=== PATIENT | male | born 2000 | race Two or more races ===

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

== ENCOUNTER 2019-01-09 12:06 | Emergency (ER) | payer OTHER ==
[~2019-01-09] VITALS: Ht 170.2 cm; Wt 56.7 kg
--- NOTE | 2019-01-09 12:20 | NUR ---
CALLED TO TRIAGE,NO ANSWER
--- NOTE | 2019-01-09 12:30 | NUR ---
LT TESTICULAR PAIN/SWELLING, PAIN RAD TO LT LEG SINCE THIS AM. PATIENT A/OX4, BREATHING EVEN AND UNLABORED, DAD AT BEDSIDE.
[2019-01-09] MEDS ORDERED: AZITHROMYCIN 250 MG TABLET ONE (12:48)
[2019-01-09] MEDS ORDERED: LIDOCAINE /MPF 1% VIAL 5 ML VIAL ONE (12:48)
[2019-01-09] MEDS ORDERED: CEFTRIAXONE 500 MG VIAL ONE (12:48)
[2019-01-09] MEDS ORDERED: IBUPROFEN 600 MG TABLET PO ONE ×2 (12:48→13:00)
--- NOTE | 2019-01-09 12:50 | NUR ---
UA OBTAINED VIA STRAIGHT CATH, PER PATIENT HE'S UNABLE TO PEE ON HIS OWN. UA SENT TO LAB.
[2019-01-09 13:00] LABS: APPEARANCE,URINE Slightly Cloudy (CLEAR); BILIRUBIN,URINE SMALL (NEGATIVE); BLOOD, URINE Negative Ery/uL (NEGATIVE); COLOR,URINE Dark (YELLOW); KETONES,URINE Trace (NEGATIVE); LEUKOCYTE ESTERASE ,URINE Small (NEGATIVE); NITRITE, URINE Positive (NEGATIVE); PROTEIN,URINE 30 mg/dl (NEGATIVE); UGLUCOSE Negative (NEGATIVE); UROBILINOGEN,URINE >=8.0 EU/dL (0.2)
[2019-01-09] MEDS ORDERED: CEFTRIAXONE 500 MG VIAL IM ONE (13:00)
[2019-01-09] MEDS ORDERED: AZITHROMYCIN 250 MG TABLET PO ONE (13:00)
[2019-01-09 13:19] LABS: BACTERIA,URINE Many /HPF (None Seen); RBC,URINE 0-2 /HPF (0-2); SQUAMOUS EPITHELIAL CELL,UR Moderate /HPF (None Seen); WBC,URINE 21-50 /HPF (0-3)
[2019-01-09 14:14] VITALS: BP 126/53
--- NOTE | 2019-01-09 14:14 | NUR ---
Patient discharged to home in stable condition. Written and verbal after care instructions given. Patient verbalizes understanding of instruction.
== END 2019-01-09 14:15 | disposition home or self-care (01) ==
LOC: ER 12:14
DX: N39.0 Urinary tract infection, site not specified (principal); N50.812 Left testicular pain; Z98.890 Other specified postprocedural states
CPT/HCPCS: 76870; 81001; 82962; 87086; 87491; 87591; 96372; 99284; J0696; J3490; 81000-TC; 87186-TC

== ENCOUNTER 2019-09-05 17:04 | Emergency (ER) | payer OTHER ==
[~2019-09-05] VITALS: Ht 172.7 cm; Wt 61.7 kg
[2019-09-05 17:20] VITALS: BP 114/71
--- NOTE | 2019-09-05 18:01 | NUR ---
Patient discharged to home in stable condition. Written and verbal after care instructions given. Patient verbalizes understanding of instruction.
== END 2019-09-05 18:02 | disposition home or self-care (01) ==
LOC: ER 17:04
DX: B35.1 Tinea unguium (principal); R23.4 Changes in skin texture; Z98.890 Other specified postprocedural states

== ENCOUNTER 2020-12-03 23:17 | Emergency (ER) | payer OTHER ==
[~2020-12-03] VITALS: Ht 170.2 cm; Wt 61.2 kg
[2020-12-03 23:28] VITALS: BP 110/70
[2020-12-04] MEDS ORDERED: ONDANSETRON 4 MG TAB.RAPDIS SL ONE
[2020-12-04] MEDS ORDERED: HYDROCODONE/APAP 10/325MG TABLET PO ONE
[2020-12-04] MEDS ORDERED: CYCLOBENZAPRINE 10 MG TABLET PO ONE
[2020-12-04] MEDS ORDERED: ONDANSETRON 4 MG TAB.RAPDIS ONE (00:10)
[2020-12-04] MEDS ORDERED: CYCLOBENZAPRINE 10 MG TABLET ONE (00:10)
[2020-12-04] MEDS ORDERED: HYDROCODONE/APAP 10/325MG TABLET ONE (00:10)
[2020-12-04] MEDS ORDERED: CYCL10TA9 PO (01:19)
[2020-12-04] MEDS ORDERED: HYDR-3980 PO (01:19)
--- NOTE | 2020-12-04 01:30 | NUR ---
Patient discharged to home in stable condition. Written and verbal after care instructions given. Patient verbalizes understanding of instruction.
== END 2020-12-04 01:45 | disposition home or self-care (01) ==
LOC: ER 23:17
DX: M54.5 Low back pain (principal); Z98.890 Other specified postprocedural states; Z79.899 Other long term (current) drug therapy
CPT/HCPCS: 72100; 99284; Q0162

== ENCOUNTER 2021-08-09 11:29 | Emergency (ER) | payer OTHER ==
[~2021-08-09] VITALS: Ht 172.7 cm; Wt 65.8 kg
[~2021-08-09 11:29] MED LIST: CYCL10TA9 PO; HYDR-3980 PO
[2021-08-09 11:39] VITALS: BP 113/57
--- NOTE | 2021-08-09 11:39 | NUR ---
BIB SELF C/O PENILE DISCHARGES STARTED YESTERDAY. PT A/OX4. TOLERATING R/A WELL
[2021-08-09] MEDS ORDERED: DOXY100C2 PO (11:59)
[2021-08-09] MEDS ORDERED: DOXYCYCLINE HYCLATE (100 MG) 100 MG TABLET PO ONE (12:00)
[2021-08-09] MEDS ORDERED: CEFTRIAXONE 500 MG VIAL IM ONE (12:00)
[2021-08-09] MEDS ORDERED: CEFTRIAXONE 500 MG VIAL ONE (12:02)
[2021-08-09] MEDS ORDERED: LIDOCAINE /MPF 1% VIAL 5 ML VIAL ONE (12:02)
[2021-08-09] MEDS ORDERED: DOXYCYCLINE HYCLATE (100 MG) 100 MG TABLET ONE (12:02)
--- NOTE | 2021-08-09 12:22 | NUR ---
URINE COLLECTED AND SENT TO LAB
--- NOTE | 2021-08-09 12:24 | NUR ---
Patient discharged to home in stable condition. Written and verbal after care instructions given. Patient verbalizes understanding of instruction.
--- NOTE | 2021-08-09 12:24 | NUR ---
Patient discharged to home in stable condition. Written and verbal after care instructions given. Patient verbalizes understanding of instruction. PT ambulatory with a steady gait
[2021-08-09 13:06] LABS: BILIRUBIN,URINE NEGATIVE (NEGATIVE); COLOR,URINE YELLOW (YELLOW); LEUKOCYTE ESTERASE ,URINE TRACE (NEGATIVE); NITRITE, URINE NEGATIVE (NEGATIVE); PROTEIN,URINE NEGATIVE (NEGATIVE); UGLUCOSE NEGATIVE (NEGATIVE); UROBILINOGEN,URINE 0.2 EU/dL (0.2)
[2021-08-09 13:07] LABS: RBC,URINE NONE SEEN /HPF (0-2)
[2021-08-09 13:08] LABS: BACTERIA,URINE Few /HPF (None Seen); SQUAMOUS EPITHELIAL CELL,UR Few /HPF (None Seen)
== END 2021-08-09 12:24 | disposition home or self-care (01) ==
LOC: ER 11:31
DX: N34.2 Other urethritis (principal); Z79.2 Long term (current) use of antibiotics; Z79.891 Long term (current) use of opiate analgesic
CPT/HCPCS: 81001; 87491; 87591; 96372; 99283; J0696; J3490

== ENCOUNTER 2021-09-19 10:40 | Emergency (ER) | payer OTHER ==
[~2021-09-19] VITALS: Ht 170.2 cm; Wt 63.5 kg
[~2021-09-19 10:40] MED LIST changes: +DOXY100C2 PO
--- NOTE | 2021-09-19 10:45 | NUR ---
SENT TO ER BED 11. BIBSELF FRM HOME C/O DYSURIA x 2 DAY. VITALS WITHIN NORMAL LIMITS.BREATHING REGULAR AN DUNLABORED.
--- NOTE | 2021-09-19 10:59 | NUR ---
URINE COLLECTED AND SENT
[2021-09-19 11:48] LABS: BILIRUBIN,URINE NEGATIVE (NEGATIVE); COLOR,URINE YELLOW (YELLOW); LEUKOCYTE ESTERASE ,URINE MODERATE (NEGATIVE); NITRITE, URINE POSITIVE (NEGATIVE); PROTEIN,URINE NEGATIVE (NEGATIVE); UGLUCOSE NEGATIVE (NEGATIVE); UROBILINOGEN,URINE 0.2 EU/dL (0.2)
[2021-09-19 12:07] LABS: BACTERIA,URINE Moderate /HPF (None Seen); SQUAMOUS EPITHELIAL CELL,UR Few /HPF (None Seen); WBC,URINE TOO NUMEROUS TO COUN /HPF (0-3)
[2021-09-19] MEDS ORDERED: CEPH500C2 PO (13:28)
[2021-09-19 13:34] VITALS: BP 117/52
--- NOTE | 2021-09-19 13:34 | NUR ---
Patient discharged to home in stable condition. Written and verbal after care instructions given. Patient verbalizes understanding of instruction.
== END 2021-09-19 13:34 | disposition home or self-care (01) ==
LOC: ER 10:42
DX: N39.0 Urinary tract infection, site not specified (principal); R30.0 Dysuria; Z98.890 Other specified postprocedural states
CPT/HCPCS: 81001; 87086-TC; 87186-TC; 87491; 87591

== ENCOUNTER 2021-10-01 06:09 | Emergency (ER) | payer OTHER ==
[~2021-10-01] VITALS: Ht 170.2 cm; Wt 65.8 kg
[~2021-10-01 06:09] MED LIST changes: +CEPH500C2 PO
[2021-10-01 06:18] VITALS: BP 137/79
--- NOTE | 2021-10-01 06:18 | NUR ---
BIBS IN NEED OF HERNANDEZ SUPPLIES.
--- NOTE | 2021-10-01 06:47 | NUR ---
Patient discharged to home in stable condition. Written and verbal after care instructions given. Patient verbalizes understanding of instruction. PT ambulatory with a steady gait
--- NOTE | 2021-10-01 06:48 | NUR ---
Patient discharged to home in stable condition. Written and verbal after care instructions given. Patient verbalizes understanding of instruction.
== END 2021-10-01 06:48 | disposition home or self-care (01) ==
LOC: ER 06:33
DX: R33.8 Other retention of urine (principal); Z87.448 Personal history of other diseases of urinary system; Z98.890 Other specified postprocedural states; Z79.891 Long term (current) use of opiate analgesic; Z79.899 Other long term (current) drug therapy

== ENCOUNTER 2021-10-03 23:26 | Emergency (ER) | payer OTHER ==
[~2021-10-03] VITALS: Ht 172.7 cm; Wt 61.2 kg
[2021-10-04 00:09] VITALS: BP 123/65
[2021-10-04] MEDS ORDERED: [UNRECOGNIZED DRUG - SUPPLY] MC (00:17)
--- NOTE | 2021-10-04 00:22 | NUR ---
Patient discharged to home in stable condition. Written and verbal after care instructions given. Patient verbalizes understanding of instruction. Pt ambulatory with a steady gait
== END 2021-10-04 00:23 | disposition home or self-care (01) ==
LOC: ER 23:34
DX: R33.9 Retention of urine, unspecified (principal); Z87.828 Personal history of other (healed) physical injury and trauma; Z79.891 Long term (current) use of opiate analgesic; Z79.899 Other long term (current) drug therapy

== ENCOUNTER 2022-03-20 20:06 | Emergency (ER) | payer OTHER ==
[~2022-03-20] VITALS: Ht 170.2 cm; Wt 63.5 kg
[~2022-03-20 20:06] MED LIST changes: +[UNRECOGNIZED DRUG - SUPPLY] MC
--- NOTE | 2022-03-20 21:29 | NUR ---
PT FROM HOME A/O X 4 C/O BLOOD IN THE URINE TODAY, DENIES ANY OTHER SYMPTOMS AT THIS TIME.
--- NOTE | 2022-03-20 21:34 | NUR ---
URINE COLLECTED AND SENT TO LAB
[2022-03-20 22:17] LABS: BILIRUBIN,URINE NEGATIVE (NEGATIVE); COLOR,URINE YELLOW (YELLOW); LEUKOCYTE ESTERASE ,URINE SMALL (NEGATIVE); NITRITE, URINE POSITIVE (NEGATIVE); PROTEIN,URINE NEGATIVE (NEGATIVE); UGLUCOSE NEGATIVE (NEGATIVE)
[2022-03-20 22:21] LABS: BASOPHILS # (AUTO) 0.1 K/uL (0.0-0.2); BASOPHILS % (AUTO) 0.5 % (0.0-2.0); HEMATOCRIT 39 % (39-51); HEMOGLOBIN 13.1 g/dL (13.5-17.5); LYMPHOCYTES # (AUTO) 3.3 K/uL (0.8-4.8); LYMPHOCYTES % (AUTO) 33.3 % (20.0-44.0); MEAN CORPUSCULAR HGB CONC 34 g/dl (31.0-36.0); MEAN CORPUSCULAR VOLUME 85 fL (80-96); MONOCYTES # (AUTO) 0.9 K/uL (0.1-1.30); NEUTROPHILS # (AUTO) 5.4 K/uL (1.8-8.9); NEUTROPHILS % (AUTO) 55.2 % (43.0-81.0); PLATELET COUNT (AUTO) 213 K/uL (150-450); RED BLOOD CELL COUNT(AUTO) 4.58 MIL/uL (4.5-6.0); WHITE BLOOD COUNT (AUTO) 9.8 K/uL (4.3-11.0)
[2022-03-20 22:23] LABS: BACTERIA,URINE Many /HPF (None Seen); SQUAMOUS EPITHELIAL CELL,UR Few /HPF (None Seen)
[2022-03-20 22:24] LABS: CALCIUM, SERUM 8.7 mg/dL (8.5-10.1); CREATININE 0.8 mg/dL (0.6-1.3)
[2022-03-20 22:25] LABS: POTASSIUM 2.8 mmol/L (3.5-5.1)
--- NOTE | 2022-03-20 22:25 | NUR ---
POTASSIUM 2.8
[2022-03-20] MEDS ORDERED: POTASSIUM CHLORIDE 20 MEQ TAB.PRT.SR PO ONE ×2 (22:41→23:00)
[2022-03-20] MEDS ORDERED: CEPH500C2 PO (22:58)
[2022-03-20] MEDS ORDERED: CEPHALEXIN MONOHYDRATE 500 MG CAPSULE PO ONE ×2 (23:00)
--- NOTE | 2022-03-20 23:02 | NUR ---
Patient discharged to home in stable condition. Written and verbal after care instructions given. Patient verbalizes understanding of instruction.
[2022-03-20 23:03] VITALS: BP 116/66
== END 2022-03-20 23:03 | disposition home or self-care (01) ==
LOC: ER 20:08
DX: R31.0 Gross hematuria (principal); E87.6 Hypokalemia; Z98.890 Other specified postprocedural states; Z79.899 Other long term (current) drug therapy
CPT/HCPCS: 36415; 80048-TC; 81001; 85025-TC; 85730-TC; 87086-TC; 87186-TC; 87491; 87591

== ENCOUNTER 2023-02-28 21:25 | Emergency (ER) | payer OTHER ==
[~2023-02-28] VITALS: Ht 170.2 cm; Wt 63.5 kg
[2023-02-28 22:09] VITALS: BP 107/76; TEMP 98.1
[2023-02-28] MEDS ORDERED: NABU-141 PO (22:11)
[2023-02-28] MEDS ORDERED: KETOROLAC TROMETHAMINE INJ 60 MG/2 ML VIAL IM ONE ×2 (22:13→22:30)
[2023-02-28 23:42] VITALS: O2SAT 98
== END 2023-02-28 23:42 | disposition home or self-care (01) ==
LOC: ER 21:30
DX: M54.50 Low back pain, unspecified (principal)
CPT/HCPCS: 99283; 96372; 72110; J1885

== ENCOUNTER → 2023-04-13 | Emergency (ER) | payer OTHER ==
[~2023-04-13] VITALS: Ht 170.2 cm; Wt 63.5 kg
[~2023-04-13] MED LIST changes: +DOXY100C PO; +NABU-141 PO
[2023-04-13 17:03] VITALS: BP 136/68; TEMP 98
[2023-04-13 18:08] VITALS: O2SAT 99
== END | disposition home or self-care (01) ==
LOC: ER 17:00
DX: R21 Rash and other nonspecific skin eruption (principal)

== ENCOUNTER 2023-04-15 08:59 | Emergency (ER) | payer OTHER ==
[~2023-04-15] VITALS: Ht 170.2 cm; Wt 67.1 kg
[~2023-04-15 08:59] MED LIST changes: -DOXY100C PO
[2023-04-15] MEDS ORDERED: CEFTRIAXONE 500 MG VIAL ONE (10:26)
[2023-04-15] MEDS ORDERED: DOXYCYCLINE HYCLATE (100 MG) 100 MG TABLET ONE (10:27)
[2023-04-15] MEDS ORDERED: DOXYCYCLINE HYCLATE (100 MG) 100 MG TABLET PO ONE (10:30)
[2023-04-15] MEDS ORDERED: CEFTRIAXONE 500 MG VIAL IM ONE (10:30)
[2023-04-15 10:51] LABS: APPEARANCE,URINE SLIGHTLY CLOUDY (CLEAR); BILIRUBIN,URINE NEGATIVE (NEGATIVE); BLOOD, URINE NEGATIVE Ery/uL (NEGATIVE); COLOR,URINE YELLOW (YELLOW); KETONES,URINE NEGATIVE (NEGATIVE); LEUKOCYTE ESTERASE ,URINE 1+ (NEGATIVE); NITRITE, URINE POSITIVE (NEGATIVE); PROTEIN,URINE NEGATIVE (NEGATIVE); UGLUCOSE NEGATIVE (NEGATIVE)
[2023-04-15] MEDS ORDERED: DOXY100C PO (11:20)
[2023-04-15 11:28] LABS: ADD URINE CULTURE YES; BACTERIA,URINE Many /HPF (None Seen); RBC,URINE 0-2 /HPF (0-2); SQUAMOUS EPITHELIAL CELL,UR Few /HPF (None Seen); WBC,URINE 21-50 /HPF (0-3)
[2023-04-15 11:38] VITALS: BP 114/71; TEMP 98.7; O2SAT 99
[2023-04-17 07:06] LABS: CHLAMYDIA TRACHOMATIS NAA Negative (Negative); NEISSERIA GONORRHOEAE NAA Negative (Negative)
== END 2023-04-15 11:39 | disposition home or self-care (01) ==
LOC: ER 09:02
DX: N34.2 Other urethritis (principal); A64 Unspecified sexually transmitted disease
CPT/HCPCS: 99283; 96372; 87086; 81001; 87491; 87591; J0696

== ENCOUNTER 2023-07-28 07:49 | Emergency (ER) | payer OTHER ==
[~2023-07-28] VITALS: Ht 172.7 cm; Wt 65.8 kg
[2023-07-28 07:49] VITALS: BP 117/69; TEMP 98.1
[~2023-07-28 07:49] MED LIST changes: +DOXY100C PO
[2023-07-28 09:47] LABS: APPEARANCE,URINE SLIGHTLY CLOUDY (CLEAR); BILIRUBIN,URINE NEGATIVE (NEGATIVE); BLOOD, URINE NEGATIVE Ery/uL (NEGATIVE); COLOR,URINE YELLOW (YELLOW); KETONES,URINE NEGATIVE (NEGATIVE); LEUKOCYTE ESTERASE ,URINE 3+ (NEGATIVE); NITRITE, URINE POSITIVE (NEGATIVE); PH,URINE 6.5 (5.0-8.0); PROTEIN,URINE NEGATIVE (NEGATIVE); UGLUCOSE NEGATIVE (NEGATIVE); UROBILINOGEN,URINE 0.2 EU/dL (0.2)
[2023-07-28 09:52] LABS: ADD URINE CULTURE YES; BACTERIA,URINE Moderate /HPF (None Seen); RBC,URINE 0-2 /HPF (0-2); SQUAMOUS EPITHELIAL CELL,UR Rare /HPF (None Seen); WBC,URINE 21-50 /HPF (0-3)
[2023-07-28 10:16] LABS: AMPHETAMINE, URINE NEGATIVE (NEGATIVE); BARBITURATE, URINE NEGATIVE (NEGATIVE); BENZODIAZEPINE, URINE NEGATIVE (NEGATIVE); COCCAINE, URINE NEGATIVE (NEGATIVE); OPIATE, URINE NEGATIVE (NEGATIVE); PHENCYCLIDINE SCREEN,URINE NEGATIVE (NEGATIVE)
[2023-07-28 10:17] LABS: CANNABINOID, URINE POSITIVE (NEGATIVE)
[2023-07-28] MEDS ORDERED: AZITHROMYCIN 250 MG TABLET PO ONE (12:00)
[2023-07-28] MEDS ORDERED: CEFTRIAXONE 1 G VIAL IM ONE (12:00)
[2023-07-28] MEDS ORDERED: CEFTRIAXONE 1 G VIAL ONE (12:02)
[2023-07-28] MEDS ORDERED: AZITHROMYCIN 250 MG TABLET ONE (12:02)
[2023-07-28] MEDS ORDERED: LIDOCAINE 2% 20 ML MDV ONE (12:03)
[2023-07-28 12:32] LABS: BASOPHILS % (AUTO) 0.6 % (0.0-2.0); EOSINOPHILS % (AUTO) 0.5 % (0.0-6.0); HEMATOCRIT 42 % (39-51); HEMOGLOBIN 14.1 g/dL (13.5-17.5); LYMPHOCYTES # (AUTO) 1.8 K/uL (0.8-4.8); LYMPHOCYTES % (AUTO) 26.4 % (20.0-44.0); MEAN CORPUSCULAR HEMOGLOBIN 29 PG (26.0-33.0); MEAN CORPUSCULAR HGB CONC 34 g/dl (31.0-36.0); MEAN CORPUSCULAR VOLUME 85 fL (80-96); MONOCYTES # (AUTO) 0.4 K/uL (0.1-1.30); NEUTROPHILS # (AUTO) 4.5 K/uL (1.8-8.9); NEUTROPHILS % (AUTO) 66.5 % (43.0-81.0); PLATELET COUNT (AUTO) 224 K/uL (150-450); RED BLOOD CELL COUNT(AUTO) 4.88 MIL/uL (4.5-6.0); RED CELL DISTRIBUTION WIDTH 14.2 % (11.5-15.0); WHITE BLOOD COUNT (AUTO) 6.8 K/uL (4.3-11.0)
[2023-07-28 12:44] LABS: CALCIUM, SERUM 9.6 mg/dL (8.5-10.1); CREATININE 0.8 mg/dL (0.6-1.3); POTASSIUM 3.6 mmol/L (3.5-5.1)
[2023-07-28 13:05] LABS: ALBUMIN 4.2 g/dL (3.4-5.0); BILIRUBIN,TOTAL 0.7 mg/dL (0.2-1.0); TOTAL PROTEIN, SERUM 8.4 g/dL (6.4-8.2)
[2023-07-28 14:33] VITALS: O2SAT 98
[2023-07-29 07:08] LABS: RAPID PLASMA REAGIN QUAL. Non Reactive (Non Reactive)
[2023-07-29 11:23] LABS: HIV-1 p24 ANTIGEN NON REACTIVE (NONREACTIVE); HIV-1/2 ANTIBODY NON REACTIVE (NONREACTIVE)
[2023-07-29 22:08] LABS: CHLAMYDIA TRACHOMATIS NAA Negative (Negative); NEISSERIA GONORRHOEAE NAA Negative (Negative)
== END 2023-07-28 14:33 | disposition home or self-care (01) ==
LOC: ER 07:52
DX: N39.0 Urinary tract infection, site not specified (principal)
CPT/HCPCS: 99283; 86592; 86593; 96372; 85025; 87086; 36415; 80053; 87806; 80307; 87491; 87591; 81001; J0696; J3490

== ENCOUNTER 2023-07-29 23:10 | Emergency (ER) | payer OTHER ==
[~2023-07-29] VITALS: Ht 172.7 cm; Wt 65.8 kg
[2023-07-30 02:09] LABS: APPEARANCE,URINE SLIGHTLY CLOUDY (CLEAR); BILIRUBIN,URINE NEGATIVE (NEGATIVE); BLOOD, URINE NEGATIVE Ery/uL (NEGATIVE); COLOR,URINE YELLOW (YELLOW); KETONES,URINE NEGATIVE (NEGATIVE); LEUKOCYTE ESTERASE ,URINE TRACE (NEGATIVE); NITRITE, URINE NEGATIVE (NEGATIVE); PROTEIN,URINE NEGATIVE (NEGATIVE); UGLUCOSE NEGATIVE (NEGATIVE); UROBILINOGEN,URINE 0.2 EU/dL (0.2)
[2023-07-30 02:10] LABS: ADD URINE CULTURE NO; BACTERIA,URINE Rare /HPF (None Seen); RBC,URINE 0-2 /HPF (0-2); SQUAMOUS EPITHELIAL CELL,UR Few /HPF (None Seen)
[2023-07-30 02:20] LABS: AMPHETAMINE, URINE NEGATIVE (NEGATIVE); BARBITURATE, URINE NEGATIVE (NEGATIVE); BENZODIAZEPINE, URINE NEGATIVE (NEGATIVE); CANNABINOID, URINE NEGATIVE (NEGATIVE); COCCAINE, URINE NEGATIVE (NEGATIVE); OPIATE, URINE NEGATIVE (NEGATIVE); PHENCYCLIDINE SCREEN,URINE NEGATIVE (NEGATIVE)
[2023-07-30] MEDS ORDERED: ACYC200C31 PO (05:52)
[2023-07-30 06:12] VITALS: BP 114/67; TEMP 98.1; O2SAT 99
== END 2023-07-30 06:12 | disposition home or self-care (01) ==
LOC: ER 23:13
DX: A64 Unspecified sexually transmitted disease (principal)
CPT/HCPCS: 81001

== ENCOUNTER 2023-10-03 20:12 | Emergency (ER) | payer OTHER ==
[~2023-10-03] VITALS: Ht 170.2 cm; Wt 65.8 kg
[~2023-10-03 20:12] MED LIST changes: +ACYC200C31 PO; +CYCL5TAB PO; +GABA-536 PO; +KETO10TA2 PO; +TRAM-351 PO
[2023-10-03 20:23] VITALS: BP 114/73; TEMP 98.1
[2023-10-03 20:43] VITALS: O2SAT 97
== END 2023-10-03 20:43 | disposition home or self-care (01) ==
LOC: ER 20:15
DX: Z71.1 Person with feared health complaint in whom no diagnosis is made (principal); Z79.899 Other long term (current) drug therapy; Z98.890 Other specified postprocedural states

== ENCOUNTER 2023-10-10 12:51 | Emergency (ER) | payer OTHER ==
[~2023-10-10] VITALS: Ht 170.2 cm; Wt 65.8 kg
[2023-10-10 12:52] VITALS: BP 110/66; TEMP 98.4; O2SAT 98
[2023-10-10] MEDS ORDERED: PENICILLIN G BENZATHINE 2.4 MMU/4 ML ML IM ONE (13:14)
[2023-10-10] MEDS: PENICILLIN G BENZATHINE 2.4 MMU/4 ML ML IM ONE (13:39)
[2023-10-11 08:07] LABS: RAPID PLASMA REAGIN QUAL. Non Reactive (Non Reactive)
== END 2023-10-10 13:46 | disposition home or self-care (01) ==
LOC: ER 12:51
DX: A64 Unspecified sexually transmitted disease (principal)
CPT/HCPCS: 99283; 86592; 86593; 96372; 36415; J0558

== ENCOUNTER 2023-12-05 00:56 | Emergency (ER) | payer OTHER ==
[~2023-12-05] VITALS: Ht 172.7 cm; Wt 61.2 kg
[2023-12-05 01:35] VITALS: TEMP 98.6
[2023-12-05 02:10] LABS: APPEARANCE,URINE CLEAR (CLEAR); BILIRUBIN,URINE NEGATIVE (NEGATIVE); BLOOD, URINE NEGATIVE Ery/uL (NEGATIVE); COLOR,URINE YELLOW (YELLOW); KETONES,URINE NEGATIVE (NEGATIVE); LEUKOCYTE ESTERASE ,URINE 1+ (NEGATIVE); NITRITE, URINE NEGATIVE (NEGATIVE); PROTEIN,URINE NEGATIVE (NEGATIVE); UGLUCOSE NEGATIVE (NEGATIVE); UROBILINOGEN,URINE 0.2 EU/dL (0.2)
[2023-12-05 02:11] LABS: ADD URINE CULTURE YES; BACTERIA,URINE Rare /HPF (None Seen); RBC,URINE 0-2 /HPF (0-2); SQUAMOUS EPITHELIAL CELL,UR Few /HPF (None Seen)
[2023-12-05] MEDS ORDERED: CEPH500C2 PO (02:25)
[2023-12-05 02:37] VITALS: BP 128/86; O2SAT 99
[2023-12-06 22:10] LABS: CHLAMYDIA TRACHOMATIS NAA Negative (Negative); NEISSERIA GONORRHOEAE NAA Negative (Negative)
== END 2023-12-05 02:37 | disposition home or self-care (01) ==
LOC: ER 01:05
DX: N48.1 Balanitis (principal); Z79.899 Other long term (current) drug therapy
CPT/HCPCS: 81001; 87491; 87591

== ENCOUNTER 2024-07-07 16:25 | Emergency (ER) | payer OTHER ==
[~2024-07-07] VITALS: Ht 170.2 cm; Wt 65.8 kg
[2024-07-07 17:38] VITALS: BP 116/65; TEMP 98.1; O2SAT 99
[2024-07-07] MEDS ORDERED: CLOT15CR27 TP (17:47)
== END 2024-07-07 18:20 | disposition home or self-care (01) ==
LOC: ER 16:25
DX: N47.6 Balanoposthitis (principal); R21 Rash and other nonspecific skin eruption; Z79.899 Other long term (current) drug therapy

== ENCOUNTER 2024-07-17 09:49 | Emergency (ER) | payer OTHER ==
[~2024-07-17] VITALS: Ht 170.2 cm; Wt 68.0 kg
[~2024-07-17 09:49] MED LIST changes: +CLOT15CR27 TP
[2024-07-17 10:34] VITALS: BP 122/53; TEMP 98.2; O2SAT 100
[2024-07-17] MEDS ORDERED: ACYC-108 PO (11:18)
[2024-07-17] MEDS ORDERED: NYST15CR TP (11:18)
[2024-07-17] MEDS ORDERED: DOXYCYCLINE HYCLATE (100 MG) 100 MG TABLET ONE (11:30)
[2024-07-17] MEDS ORDERED: LIDOCAINE /MPF 1% VIAL 5 ML VIAL ONE (11:30)
[2024-07-17] MEDS ORDERED: CEFTRIAXONE 500 MG VIAL ONE (11:30)
[2024-07-17] MEDS: CEFTRIAXONE 500 MG VIAL IM ONE (11:37)
[2024-07-17] MEDS: DOXYCYCLINE HYCLATE (100 MG) 100 MG TABLET PO ONE (11:37)
[2024-07-18 04:06] LABS: RAPID PLASMA REAGIN QUAL. Non Reactive (Non Reactive)
== END 2024-07-17 12:01 | disposition home or self-care (01) ==
LOC: ER 09:58
DX: R21 Rash and other nonspecific skin eruption (principal); R30.0 Dysuria; N48.1 Balanitis; Z79.899 Other long term (current) drug therapy
CPT/HCPCS: 99283; 86592; 86593; 96372; 87529; 87806; J0696; J3490

== ENCOUNTER 2024-11-03 20:16 | Emergency (ER) | payer OTHER ==
[~2024-11-03] VITALS: Ht 167.6 cm; Wt 67.6 kg
[~2024-11-03 20:16] MED LIST changes: +ACYC-108 PO; +NYST15CR TP
[2024-11-03 21:04] VITALS: BP 113/69; TEMP 97.8
[2024-11-03] MEDS ORDERED: CEFTRIAXONE 500 MG VIAL ONE (21:22)
[2024-11-03] MEDS: CEFTRIAXONE 1 G VIAL IM ONE (21:26)
[2024-11-03] MEDS ORDERED: FLUCONAZOLE (100 MG) 100 MG TABLET ONE (21:30)
[2024-11-03] MEDS: FLUCONAZOLE (100 MG) 100 MG TABLET PO ONE (21:31)
[2024-11-03] MEDS ORDERED: DOXY100C2 PO (21:47)
[2024-11-03] MEDS ORDERED: CLOT15CR27 TP (21:47)
[2024-11-03 22:05] VITALS: O2SAT 98
[2024-11-04 23:33] LABS: HIV-1 p24 ANTIGEN NON REACTIVE (NONREACTIVE); HIV-1/2 ANTIBODY NON REACTIVE (NONREACTIVE)
[2024-11-05 23:08] LABS: CHLAMYDIA TRACHOMATIS NAA Negative (Negative); NEISSERIA GONORRHOEAE NAA Negative (Negative)
[2024-11-06 10:16] LABS: RAPID PLASMA REAGIN QUAL. Non Reactive (Non Reactive)
== END 2024-11-03 22:08 | disposition home or self-care (01) ==
LOC: ER 20:18
DX: N47.6 Balanoposthitis (principal); F17.200 Nicotine dependence, unspecified, uncomplicated; Z91.048 Other nonmedicinal substance allergy status; Z79.899 Other long term (current) drug therapy
CPT/HCPCS: 99283; 96372; 87806; 87491; 87591; J0696; 36415; 86592; 86593

== ENCOUNTER 2024-12-25 17:36 | Emergency (ER) | payer OTHER ==
[~2024-12-25] VITALS: Ht 170.2 cm; Wt 65.8 kg
[2024-12-25] MEDS ORDERED: ACETAMINOPHEN ES 500 MG TABLET ONE (18:17)
[2024-12-25] MEDS ORDERED: KETOROLAC TROMETHAMINE INJ 30 MG/ML VIAL ONE (18:17)
[2024-12-25] MEDS: ACETAMINOPHEN ES 500 MG TABLET PO ONE (18:29)
[2024-12-25] MEDS: KETOROLAC TROMETHAMINE INJ 30 MG/ML VIAL IM ONE (18:30)
[2024-12-25] MEDS ORDERED: IBUP-1953 PO (18:46)
[2024-12-25] MEDS ORDERED: GABA-536 PO (18:46)
[2024-12-25 19:04] VITALS: BP 112/72; TEMP 98.4; O2SAT 98
== END 2024-12-25 19:05 | disposition home or self-care (01) ==
LOC: ER 17:44
DX: M79.605 Pain in left leg (principal); G89.29 Other chronic pain; Z79.899 Other long term (current) drug therapy
CPT/HCPCS: 99285; 93971; 96372; J1885

== ENCOUNTER 2025-06-11 12:08 | Emergency (ER) | payer OTHER ==
[~2025-06-11 12:08] MED LIST changes: +IBUP-1953 PO
[2025-06-11] MEDS ORDERED: GABA-532 PO (13:58)
== END 2025-06-11 12:25 | disposition left against medical advice (07) ==
LOC: ER 12:10
DX: M79.606 Pain in leg, unspecified (principal); Z53.21 Procedure and treatment not carried out due to patient leaving prior to being seen by health care provider

== ENCOUNTER 2025-06-11 12:43 | Emergency (ER) | payer OTHER ==
[~2025-06-11] VITALS: Ht 167.6 cm; Wt 65.8 kg
[2025-06-11 13:00] VITALS: BP 106/49; TEMP 98.6
[2025-06-11] MEDS ORDERED: GABA-532 PO (13:58)
[2025-06-11] MEDS ORDERED: dexaMETHasone SOD PHOSPHATE 4 MG/ML VIAL ONE (14:02)
[2025-06-11] MEDS: dexaMETHasone SOD PHOSPHATE 4 MG/ML VIAL IM ONE (14:08)
[2025-06-11 14:09] VITALS: O2SAT 100
== END 2025-06-11 15:46 | disposition home or self-care (01) ==
LOC: ER 12:45
DX: M79.605 Pain in left leg (principal); M21.379 Foot drop, unspecified foot; M79.2 Neuralgia and neuritis, unspecified; Z79.1 Long term (current) use of non-steroidal anti-inflammatories (NSAID); Z79.899 Other long term (current) drug therapy
CPT/HCPCS: 99283; 96372; J1100